=== PATIENT | male | born 1960 | race Caucasian/White ===

== ENCOUNTER → 2017-03-26 | Day surgery (SDC) | payer MEDICARE, MEDICAID ==
[~2017-03-26] MED LIST: ADVAIR HFA 230M12 GM INH; HYDROCODON-ACE1 EAC7 PO; OXYCONTIN20 M1 PO; PREDNISONE 5 MG5 M1 PO; SYMBICORT160 MCG/4. INH; VENTOLIN HFA 1818 GM INH
--- NOTE | ~2017-03-26 | PROC ---
[address] [address] PROCEDURE REPORT Name: JAYLA SIDDIQI Room: [facility].#: [id number] Admission: 03/26/17 Attend Phys: Madelyn Patton MD Discharge: Date of : 56 Report #: [id number] THIS REPORT FOR: //name// For GI report, please see the Provation report in Perceptive 7 content. By: [id number] Records Staff [facility]
--- NOTE | 2017-03-26 13:45 | EKG ---
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
== END | disposition home or self-care (01) ==
LOC: M.SUR 08:56
DX: K21.0 Gastro-esophageal reflux disease with esophagitis (principal); K44.9 Diaphragmatic hernia without obstruction or gangrene; J44.9 Chronic obstructive pulmonary disease, unspecified; B19.20 Unspecified viral hepatitis C without hepatic coma; F17.210 Nicotine dependence, cigarettes, uncomplicated; Z85.118 Personal history of other malignant neoplasm of bronchus and lung; Z90.49 Acquired absence of other specified parts of digestive tract; Z87.442 Personal history of urinary calculi; Z98.890 Other specified postprocedural states; Z79.891 Long term (current) use of opiate analgesic